=== PATIENT | female | born 1995 | race African-American/Black ===

== ENCOUNTER 2017-12-10 14:36 | Emergency (ER) | payer MEDICAID ==
[2017-12-10 16:34] LABS: Urine Appearance Cloudy; Urine Blood Negative (Negative); Urine Color Yellow; Urine Ketones Negative (Negative); Urine Protein Negative (Negative); Urine Specific Gravity 1.021 (1.010-1.030); Urine Urobilinogen Negative (Negative)
[2017-12-10 17:23] VITALS: BP 108/72
--- NOTE | 2017-12-11 06:16 | ED ---
- HPI Summary HPI Summary: Pt. is a 22 y.o female who presents to the ER for evaluation after a fall that occurred yesterday. Pt. states she is currently 17 weeks and has had a confirmed IUP by her OB. Pt. states yesterday she slipped going down wooden steps and hit her right flank area. No abd. trauma. Pt. states that since fall she has not been feeling the baby "move." She denies abd. pain, vaginal bleeding or discharge. No head injury. Symptoms are mild in severity. - History of Current Complaint Chief Complaint: EDAbdPain Stated Complaint: /FELL YESTERDAY Time Seen by Provider: 12/10/17 15:58 Hx Obtained From: Patient Pain Intensity: 1 - Allergies/Home Medications Home Medications: Home Medications NK [No Home Medications Reported] 12/10/17 [History Confirmed 12/10/17] PMH/Surg Hx/FS Hx/Imm Hx Previously Healthy: Yes Infectious Disease History: No Infectious Disease History: Denies: Traveled Outside the in Last 30 Days - Social History Occupation: Unemployed Lives: With Family Alcohol Use: None Substance Use Type: Reports: Marijuana Smoking Status (MU): Never Smoked Tobacco Review of Systems Cardiovascular: Negative Respiratory: Negative Gastrointestinal: Negative Negative: Abdominal Pain Positive: flank pain - Mild right sided flank pain.. Negative: discharge, hematuria All Other Systems Reviewed And Are Negative: Yes Physical Exam - Physical Exam Triage Information Reviewed: Yes Vital Signs Reviewed: Yes Appearance: Positive: Well-Appearing - Pt. sitting up in bed in NAD. Daughter present. Skin: Positive: Warm, Dry Head/Face: Positive: Normal Head/Face Inspection Eyes: Positive: Normal Neck: Positive: Supple Respiratory/Lung Sounds: Positive: Clear to Auscultation, Breath Sounds Present Cardiovascular: Positive: Normal, RRR Abdomen Description: Positive: Other: - appearing. Abd. is soft and nontender throughout. Mild right CVA tenderness. Neurological: Positive: Normal, CN Intact II-III Psychiatric: Positive: Affect/Mood Appropriate Diagnostics - Vital Signs Vital Signs Temp Pulse Resp BP Pulse Ox 12/10/17 17:22 0 F 80 16 108/72 99 12/10/17 14:49 97.6 F 83 16 115/66 99 - Laboratory Lab Results: Lab Results 12/10/17 Range/Units 16:21 Urine Color Yellow Urine Appearance Cloudy Urine pH 7.0 (5-9) Ur Specific [place] 1.021 (1.010-1.030) Urine Protein Negative (Negative) Urine Ketones Negative (Negative) Urine Blood Negative (Negative) Urine Nitrate Negative (Negative) Urine Bilirubin Negative (Negative) Urine Urobilinogen Negative (Negative) Ur Leukocyte Esterase Negative (Negative) Urine Glucose Negative (Negative) Urine Ascorbic Acid * A (Negative) Lab Statement: Any lab studies that have been ordered have been reviewed, and results considered in the medical decision making process. Course/Dx - Course Course Of Treatment: Pt. presenting for evaluation after falling yesterday. Pt. is concerned bc she is not feeling her baby "move" since fall. She denies abd. pain or bleeding. She does have mild right CVA tenderness from fall. VS stable. Will check U/A and obtain heart tones. U/A negative for blood or infection. heart tones around 140-150bpm as documented. Case discussed with Dr. Ma who agrees formal u/s is not indicated at this time since pt. is having no pain or bleeding. Results discussed with pt. She is upset she is not getting an u/s today and states her mother wanted her to have an u/s. Advised to call her OB today for close f.u. To return to ER if sxs change or worsen. - Differential Diagnosis/HQI/PQRI: Spontaneous , Early , UTI - Diagnoses Provider Diagnoses: Fall, First trimester Discharge - Sign-Out/Discharge Documenting (check all that apply): Patient Departure - Discharge Plan Condition: Good Disposition: HOME Patient Education Materials: (ED) Referrals: Consuelo Adams CNM [Primary Care Provider] - Additional Instructions: Schedule a follow up appointment with your OB - Billing Disposition and Condition Condition: GOOD Disposition: Home
== END 2017-12-10 17:22 | disposition home or self-care (01) ==
LOC: ED 14:36
DX: O26.892 Other specified pregnancy related conditions, second trimester (principal); R10.9 Unspecified abdominal pain; W10.9XXA Fall (on) (from) unspecified stairs and steps, initial encounter; Y92.9 Unspecified place or not applicable; Z3A.17 17 weeks gestation of pregnancy
CPT/HCPCS: 81003; 99282

== ENCOUNTER 2018-04-30 10:03 | Inpatient (IN) | payer OTHER ==
[~2018-04-30 10:03] MED LIST: Buffered Lidocaine 0.9% SYRIN* 5 ML/SYR SYRINGE INTRADERM ONE; Famotidine IV* 10 MG/ML 2 ML (20 mg) IV ONE; Lactated Ringers 1000 ML Bag* 1,000 ML IV ONE; Lactated Ringers 1000 ML Bag* 1,000 ML IV SCH; Sodium Citrate/Citric Acid* 15 ML UDC PO ONE
[2018-04-30] MEDS ORDERED: ceFOXitin 2 GM IVPREMIX* 2 GM/50 ML BAG IVPB ONE (11:00)
[2018-04-30] MEDS ORDERED: fentaNYL* 50 MCG/ML 2 ML VIAL (100 MCG VIAL) ONE (11:40)
[2018-04-30] MEDS ORDERED: Morphine PF AMP (0.5MG/ML)* 5 MG/10 ML AMP ONE (11:41)
[2018-04-30] MEDS ORDERED: KETAMINE HCL* 50 MG/ML 10 ML VIAL ONE (11:41)
[2018-04-30] MEDS ORDERED: Midazolam* 1 MG/ML 5 ML VIAL (5 MG) ONE (11:41)
[2018-04-30] MEDS ORDERED: Scopolamine 1.5 mg* PATCH ONE (12:28)
[2018-04-30] MEDS ORDERED: Nalbuphine* 10 MG/ML 1 ML VIAL IV PRN (12:41)
[2018-04-30] MEDS ORDERED: oxyCODONE/Acetamin 5/325 MG* TAB PO PRN (12:41)
[2018-04-30] MEDS ORDERED: Naloxone* 2 MG in NS 0.9% 250 ML* 250 ML IV PRN (12:41)
[2018-04-30] MEDS ORDERED: Naloxone* 0.4 MG/ML 1 ML VIAL IV PRN ×2 (12:41→12:43)
[2018-04-30] MEDS ORDERED: Scopolamine 1.5 mg* PATCH TRANSDERM PRN (12:41)
[2018-04-30] MEDS ORDERED: DiMENhydriNATE IV* 50 MG/ML VIAL IV PUSH PRN (12:41)
[2018-04-30] MEDS ORDERED: Ondansetron INJ* 2 MG/ML VIAL IV PRN (12:41)
[2018-04-30] MEDS ORDERED: PROCHLORPERAZINE INJ 5 MG/ML 2 ML VIAL IV PRN (12:41)
[2018-04-30] MEDS ORDERED: fentaNYL* 50 MCG/ML 2 ML VIAL (100 MCG VIAL) IV PRN (12:43)
[2018-04-30] MEDS ORDERED: Ondansetron INJ* 2 MG/ML VIAL ONE (13:09)
[2018-04-30] MEDS ORDERED: PROCHLORPERAZINE INJ 5 MG/ML 2 ML VIAL ONE (13:09)
[2018-04-30] MEDS ORDERED: Ketorolac INJ* 30 MG/ML 1 ML VIAL ONE (13:09)
[2018-04-30] MEDS ORDERED: Bupivacaine 0.25% SDV PF* 10 ML VIAL INJ ONE (13:09)
[2018-04-30] MEDS ORDERED: EPHEDrine (Pressors)* 50 MG/ML VIAL ONE (13:09)
[2018-04-30] MEDS ORDERED: Bupivacaine-MPF SPINAL* 7.5 MG/ML - 2ML AMP ONE (13:09)
[2018-04-30] MEDS ORDERED: Dexamethasone IV* 4 MG/ML 1 ML (4 MG) ONE (13:09)
[2018-04-30] MEDS ORDERED: Acetaminophen TAB* 325 MG PO PRN (13:18)
[2018-04-30] MEDS ORDERED: Dibucaine 1% 28.35 GM TUBE PR PRN (13:18)
[2018-04-30] MEDS ORDERED: Zolpidem TAB* 5 MG PO PRN (13:18)
[2018-04-30] MEDS ORDERED: Witch Hazel PAD* JAR TOPICAL PRN (13:18)
[2018-04-30] MEDS ORDERED: Glycerin ADULT SUPP PR PRN (13:18)
[2018-04-30] MEDS ORDERED: Lactated Ringers 1000 ML Bag* 1,000 ML IV SCH (14:00)
[2018-04-30] MEDS: Docusate CAP* 100 MG PO SCH ×2 (18:04→21:08)
[2018-04-30] MEDS: Simethicone TAB* 80 MG TAB.CHEW PO SCH ×2 (18:09→21:08)
[2018-04-30] MEDS: Nicotine PATCH 7 MG/24 HR* PATCH TRANSDERM SCH (18:10)
[2018-04-30] MEDS: Ketorolac INJ* 30 MG/ML 1 ML VIAL IV PUSH PRN (19:56)
--- NOTE | 2018-04-30 22:19 | OP ---
CC: Dr. Cecily Chapa * DATE OF OPERATION: 04/30/18 - ROOM #115 DATE OF : 89 SURGEON: Morales Duong MD. TONG SETTER: Dr. Cecily Chapa. ANESTHESIA: Spinal. PRE-OP DIAGNOSES: 1. at 36 and 5/7 weeks with preeclampsia and severe intrauterine growth restriction of the fetus. 2. Prior section. POST-OP DIAGNOSES: 1. at 36 and 5/7 weeks with preeclampsia and severe intrauterine growth restriction of the fetus. 2. Prior section. OPERATIVE PROCEDURE: Repeat low transverse section. ESTIMATED BLOOD LOSS: 1600 cc. SPECIMEN SENT TO PATHOLOGY: Placenta and cord blood. FLUIDS: She received 2100 cc of IV crystalloid fluid. URINE OUTPUT: 150 cc of clear urine. FINDINGS: Delivery of a male weighing 4 pounds 5 ounces with Apgars of 9 and 9 with clear fluid. There was normal uterus, normal adnexa bilaterally, normal bowel and bladder. There were no complications during this procedure. DESCRIPTION OF PROCEDURE: The patient was taken to the operating room where she was identified. She was placed on the operating table where a spinal anesthetic was obtained without difficulty in the supine position. She was then placed with a leftward tilt, prepped and draped in a normal sterile fashion. A Pfannenstiel skin incision was then made with a knife and carried through to the underlying layer of fascia. The fascia was nicked in the midline , extended laterally with curved Hooker scissors. The fascia was then grasped superiorly and inferiorly with Lux clamps, dissected off sharply from the rectus muscle. The rectus muscle was in the midline bluntly. The peritoneum was identified, grasped with the pickups and entered sharply with Metzenbaum scissors, and extended superiorly and inferiorly sharply. A bladder blade was inserted into the patient's abdomen. A low transverse skin incision was made about 4 cm above the bladder reflection, extended laterally with bandage scissors. The amniotic fluid was ruptured. Fluid was noted to be clear. The infant's head was then grasped and delivered atraumatically. There was a body cord x2. The cord was clamped and cut and then the baby was handed handed off to the awaiting industry consultant. Cord bloods were obtained. The placenta was removed manually. The uterus was then exteriorized, cleared off all clots and debris using moist laparotomy sponges. The uterine incision was then closed using 0 Polysorb suture in a running locked fashion with the second imbricating layer of 0 Polysorb suture with good hemostasis noted. The patient' s uterus was then returned to her abdomen. The gutters were then cleared off all clots and debris using irrigation and moist sponges. The irrigation fluid was suctioned. Again, the uterine incision was hemostatic. All the instruments and sponges were removed from the patient's abdomen. The peritoneum was then closed using 3-0 Polysorb suture in a running fashion. The fascia was closed using 0 Polysorb suture in a running fashion and the skin was closed with 4-0 Monocryl in a subcuticular stitch. The patient tolerated the procedure well. Sponge, lap, needle counts were correct x2. She was then transferred to recovery room area in stable condition. [id number]/[facility] #: [id number] KARSON
[2018-05-01] MEDS: Ketorolac INJ* 30 MG/ML 1 ML VIAL IV PUSH PRN ×2 (03:33→09:45)
[2018-05-01] MEDS ORDERED: oxyCODONE/Acetamin 5/325 MG* TAB PO PRN (04:15)
[2018-05-01 06:47] LABS: Hematocrit 31 % (35-47); Hemoglobin 10.3 g/dl (12.0-16.0); Mean Corpuscular HGB Conc 34 g/dl (31-36); Mean Corpuscular Hemoglobin 31 pg (27-31); Mean Corpuscular Volume 92 fL (80-97); Mean Platelet Volume 8.7 fL (7.4-10.4); Platelet Count 184 10^3/ul (150-450); Red Blood Count 3.34 10^6/ul (4.00-5.40); Red Cell Distribution Width 13 % (10.5-15); White Blood Count 24.2 10^3/ul (3.5-10.8)
[2018-05-01 07:02] LABS: ABS Basophils 0.1 10^3/ul (0-0.2); ABS Eosinophils 0 10^3/ul (0-0.6); ABS Lymphocytes 1.8 10^3/ul (1.0-4.8); ABS Neutrophils 20.3 10^3/ul (1.5-7.7); ABS Nucleated RBC 0 10^3/ul; Eosinophil % 0 %; Lymphocyte % 7.5 %; Nucleated Red Blood Cells % 0.1
[2018-05-01] MEDS ORDERED: Ferrous Gluconate TAB* 324 MG TAB PO SCH (09:00)
[2018-05-01] MEDS: Simethicone TAB* 80 MG TAB.CHEW PO SCH ×4 (09:44→21:03)
[2018-05-01] MEDS: Docusate CAP* 100 MG PO SCH ×3 (09:44→21:03)
[2018-05-01] MEDS ORDERED: Nicotine Patch Removal NOTE PATCH OFF SCH (15:00)
[2018-05-01] MEDS: Ibuprofen TAB* 600 MG PO PRN ×2 (16:04→23:49)
[2018-05-01] MEDS: Nicotine PATCH 7 MG/24 HR* PATCH TRANSDERM SCH (17:34)
[2018-05-01] MEDS: oxyCODONE/Acetamin 5/325 MG* TAB PO PRN ×2 (17:43→23:49)
[2018-05-02] MEDS: oxyCODONE/Acetamin 5/325 MG* TAB PO PRN ×3 (08:25→21:06)
[2018-05-02] MEDS: Docusate CAP* 100 MG PO SCH ×3 (08:26→21:07)
[2018-05-02] MEDS: Ibuprofen TAB* 600 MG PO PRN ×3 (08:26→19:47)
[2018-05-02] MEDS: Simethicone TAB* 80 MG TAB.CHEW PO SCH ×4 (08:26→21:07)
[2018-05-03] MEDS: oxyCODONE/Acetamin 5/325 MG* TAB PO PRN (04:34)
[2018-05-03 07:47] VITALS: BP 128/81
[2018-05-03] MEDS ORDERED: medroxyPROGESTERone ACETATE (DEPOT)* 150 MG/ML 1 ML IM ONE (09:13)
[2018-05-03] MEDS: Simethicone TAB* 80 MG TAB.CHEW PO SCH (09:26)
[2018-05-03] MEDS: Ibuprofen TAB* 600 MG PO PRN (09:26)
[2018-05-03] MEDS: Docusate CAP* 100 MG PO SCH (09:26)
[2018-05-03] MEDS ORDERED: Scopolamine PATCH Remove* 1 NOTE MISC PATCH OFF PRN (12:42)
== END 2018-05-03 11:05 | disposition home or self-care (01) | DRG 540 ==
LOC: MCHOB 10:03
PROVIDERS: ADMIT Obstetrics & Gynecology; ATTEND Obstetrics & Gynecology
PROC: 4A1HXCZ Monitoring of Products of Conception, Cardiac Rate, External Approach (ICD-10-PCS; 2018-04-30)
PROC: 10D00Z1 Extraction of Products of Conception, Low, Open Approach (ICD-10-PCS; principal; 2018-04-30 12:00)
DX: O14.94 Unspecified pre-eclampsia, complicating childbirth (principal); O36.5930 Maternal care for other known or suspected poor fetal growth, third trimester, not applicable or unspecified; O69.81X0 Labor and delivery complicated by cord around neck, without compression, not applicable or unspecified; O99.334 Smoking (tobacco) complicating childbirth; F17.210 Nicotine dependence, cigarettes, uncomplicated; O34.211 Maternal care for low transverse scar from previous cesarean delivery; Z3A.36 36 weeks gestation of pregnancy; Z37.0 Single live birth
CPT/HCPCS: 36415; 85025; 88307; A9270-GY; J0694; J0780; J1050; J1100; J1885; J2250; J2300; J2405; J3010; J3490

== ENCOUNTER 2019-02-13 21:28 | Emergency (ER) | payer SELFPAY ==
[2019-02-13 21:47] VITALS: BP 131/85
[2019-02-13] MEDS ORDERED: Sulfamethox/Trimethoprim DS 800/160* TAB PO ONE (21:55)
--- NOTE | 2019-02-13 22:05 | ED ---
Skin Complaint - HPI Summary HPI Summary: 23 yo BF h/o hidradenitis suppurativa p/w abscess lateral to right vulva x 1 week, now hard to walk due to severe tenderness, denies f/c - History of Current Complaint Chief Complaint: UCSkin Time Seen by Provider: 02/13/19 21:39 Stated Complaint: ABCESS ON RT LEG Hx Obtained From: Patient Hx Last Menstrual Period: today Onset/Duration: Started Days Ago Skin Exposure Onset/Duration: Days Ago Timing: Constant Onset Severity: Severe Current Severity: Severe Pain Intensity: 7 - Allergy/Home Medications Allergies/Adverse Reactions: Allergies Allergy/AdvReac Type Severity Reaction Status Date / Time No Known Allergies Allergy Verified 02/13/19 21:47 PMH/Surg Hx/FS Hx/Imm Hx Previously Healthy: Yes Endocrine/Hematology History: Denies: Hx Diabetes, Hx Thyroid Disease Cardiovascular History: Denies: Hx Hypertension Respiratory History: Denies: Hx Asthma, Hx Chronic Obstructive Pulmonary Disease (COPD) GI History: Denies: Hx Ulcer - Surgical History Surgery Procedure, Year, and Place: C-Sections x 2 Infectious Disease History: No Infectious Disease History: Denies: Hx Hepatitis, Hx Human Immunodeficiency Virus (HIV), Traveled Outside the [place] in Last 30 Days - Family History Known Family History: Positive: Non-Contributory - Social History Alcohol Use: None Substance Use Type: Reports: Marijuana Smoking Status (MU): Light Every Day Tobacco Smoker Type: Cigarettes Amount Used/How Often: 2-4 cigarettes/day Have You Smoked in the Last Year: Yes Review of Systems Constitutional: Negative Positive: Photophobia ENT: Negative Cardiovascular: Negative Respiratory: Negative Gastrointestinal: Negative Musculoskeletal: Negative Skin: Other - see HPI All Other Systems Reviewed And Are Negative: Yes Physical Exam - Summary Physical Exam Summary: Vital Signs Reviewed: Yes Eye Exam: Normal Eyes: Positive: Conjunctiva Clear ENT: Positive: Normal ENT inspection Neck: Positive: Supple Respiratory Exam: Normal Respiratory: Positive: Lungs clear Cardiovascular Exam: Normal Cardiovascular: Positive: RRR, S1 S2 Abdomen: NT/ND Musculoskeletal Exam: Normal Neurological Exam: Normal Psychological Exam: Normal Skin Exam: 1x1cm hard abscess on perineum inferio-lateral to right vulva Vital Signs On Initial Exam: Initial Vitals Temp Pulse Resp BP Pulse Ox 37.0 C 81 16 131/85 98 02/13/19 21:43 02/13/19 21:43 02/13/19 21:43 02/13/19 21:43 02/13/19 21:43 Diagnostics - Vital Signs Vital Signs Temp Pulse Resp BP Pulse Ox 02/13/19 21:43 37.0 C 81 16 131/85 98 - Laboratory Lab Statement: Any lab studies that have been ordered have been reviewed, and results considered in the medical decision making process. Course/Dx - Course Assessment/Plan: Aspirated - Differential Diagnoses - Skin Complaint Differential Diagnoses: Abscess - Diagnoses Provider Diagnoses: Hidradenitis suppurativa, Abscess Discharge ED - Sign-Out/Discharge Documenting (check all that apply): Patient Departure All imaging exams completed and their final reports reviewed: No Studies - Discharge Plan Condition: Stable Disposition: HOME Prescriptions: Sulfamethox/Trimethoprim DS* [Bactrim DS 800/160 TAB*] 1 tab PO BID 10 Days #20 tab Patient Education Materials: Abscess (ED), Hidradenitis Suppurativa (ED) Referrals: Mark Zamarripa MD [Medical Doctor] - Additional Instructions: Follow up with Dermatology if swelling worsens on abx - Billing Disposition and Condition Condition: STABLE Disposition: Home
--- NOTE | 2019-02-16 20:53 | UC ---
- Progress Note Progress Note: PATIENT CALLED REQUESTING A WORK NOTE FOR 02/13/19 AND 02/14/19. WORK NOTE PROVIDED AND LEFT AT THE FIELD EDUCATION DIRECTOR FOR PICKUP. Course/Dx - Diagnoses Provider Diagnoses: Hidradenitis suppurativa, Abscess Discharge ED - Sign-Out/Discharge Documenting (check all that apply): Post-Discharge Follow Up All imaging exams completed and their final reports reviewed: No Studies - Discharge Plan Condition: Stable Disposition: HOME Patient Education Materials: Abscess (ED), Hidradenitis Suppurativa (ED) Forms: *Work Release Referrals: Mark Zamarripa MD [Medical Doctor] - Additional Instructions: Follow up with Dermatology if swelling worsens on abx - Billing Disposition and Condition Condition: STABLE Disposition: Home
--- NOTE | 2019-02-18 17:43 | UC ---
- Progress Note Progress Note: Please call patient - see if wound is improving - Continue with abx if improving, notify MD if not Katie Course/Dx - Diagnoses Provider Diagnoses: Hidradenitis suppurativa, Abscess Discharge ED - Sign-Out/Discharge Documenting (check all that apply): Post-Discharge Follow Up All imaging exams completed and their final reports reviewed: No Studies - Discharge Plan Condition: Stable Disposition: HOME Patient Education Materials: Abscess (ED), Hidradenitis Suppurativa (ED) Forms: *Work Release Referrals: Mark Zamarripa MD [Medical Doctor] - Additional Instructions: Follow up with Dermatology if swelling worsens on abx - Billing Disposition and Condition Condition: STABLE Disposition: Home
== END 2019-02-13 22:15 | disposition home or self-care (01) ==
LOC: UCEAST 21:28
DX: L02.415 Cutaneous abscess of right lower limb (principal); L73.2 Hidradenitis suppurativa; F17.210 Nicotine dependence, cigarettes, uncomplicated
CPT/HCPCS: 87070; 87076; 87077; 87205; 87640; 87641; 99212; A9270-GY; G0463

== ENCOUNTER 2019-02-15 12:08 | Emergency (ER) | payer SELFPAY ==
--- NOTE | 2019-02-15 14:10 | ED ---
Skin Complaint - HPI Summary HPI Summary: Patient is a 23-year-old male who presents emergency department for ongoing abscess to right groin. Patient states she's had a painful lump to right coronary for about one week. She was seen at [facility] 2 days ago and had area aspirated. She was not placed on antibiotics. Patient states area become more painful and swollen. She denies past medical history. Denies fever , chills, nausea, vomiting. Symptoms are mild in severity. Touching area makes symptoms worse. Nothing makes symptoms better. - History of Current Complaint Chief Complaint: EDRashSkinAbscess Time Seen by Provider: 02/15/19 12:44 Stated Complaint: ABCESS Hx Obtained From: Patient Hx Last Menstrual Period: today Pain Intensity: 8 - Allergy/Home Medications Allergies/Adverse Reactions: Allergies Allergy/AdvReac Type Severity Reaction Status Date / Time No Known Allergies Allergy Verified 02/15/19 13:12 PMH/Surg Hx/FS Hx/Imm Hx Previously Healthy: Yes Endocrine/Hematology History: Denies: Hx Diabetes, Hx Thyroid Disease Cardiovascular History: Denies: Hx Hypertension Respiratory History: Denies: Hx Asthma, Hx Chronic Obstructive Pulmonary Disease (COPD) GI History: Denies: Hx Ulcer - Surgical History Surgery Procedure, Year, and Place: C-Sections x 2 Infectious Disease History: No Infectious Disease History: Denies: Hx Hepatitis, Hx Human Immunodeficiency Virus (HIV), Traveled Outside the [place] in Last 30 Days - Family History Known Family History: Positive: Non-Contributory - Social History Occupation: Employed Full-time Lives: With Family Alcohol Use: Rare Substance Use Type: Reports: Marijuana Smoking Status (MU): Light Every Day Tobacco Smoker Type: Cigarettes Amount Used/How Often: 2-4 cigarettes/day Have You Smoked in the Last Year: Yes Review of Systems Constitutional: Negative Negative: Fever, Chills Gastrointestinal: Negative Negative: Vomiting Positive: Other - Abscess to right groin All Other Systems Reviewed And Are Negative: Yes Physical Exam Triage Information Reviewed: Yes Vital Signs On Initial Exam: Initial Vitals Temp Pulse Resp BP Pulse Ox 97.8 F 81 18 134/81 99 02/15/19 12:14 02/15/19 12:14 02/15/19 12:14 02/15/19 12:14 02/15/19 12:14 Vital Signs Reviewed: Yes Appearance: Positive: Well-Appearing - Pt. lying in bed in NAD. Skin: Positive: Warm, Dry, Other - 3 cm area of fluctuance noted to right groin. Pinpoint area of drainage. Head/Face: Positive: Normal Head/Face Inspection Eyes: Positive: Normal, EOMI Neck: Positive: Supple Neurological: Positive: Normal, CN Intact II-III Psychiatric: Positive: Affect/Mood Appropriate Procedures - Sedation Patient Received Moderate/Deep Sedation with Procedure: No - Incision and Drainage Right Groin Anesthesia: Local, Lidocaine Instrument(s): Scalpel Packing: Gauze Diagnostics - Vital Signs Vital Signs Temp Pulse Resp BP Pulse Ox 02/15/19 12:14 97.8 F 81 18 134/81 99 - Laboratory Lab Statement: Any lab studies that have been ordered have been reviewed, and results considered in the medical decision making process. Course/Dx - Course Course Of Treatment: Patient presenting with abscess to right groin. Area was incised and drained as noted above. Moderate amount of purulent foul-smelling drainage expressed. Packing removal in 48 hours. To continue warm compresses. Bactrim prescribed. Tylenol or Motrin for pain as directed. Patient return to ER for increased pain, swelling, fever or if concerned. Patient understands and agrees with plan. - Differential Diagnoses - Skin Complaint Differential Diagnoses: Abscess, Cellulitis - Diagnoses Provider Diagnoses: Abscess Discharge ED - Sign-Out/Discharge Documenting (check all that apply): Patient Departure - Discharge Plan Condition: Improved Disposition: HOME Prescriptions: Sulfamethox/Trimethoprim DS* [Bactrim DS 800/160 TAB*] 1 tab PO BID #20 tab Patient Education Materials: Abscess (ED) Forms: *Work Release Referrals: [facility] [Outside] - 1 Week Additional Instructions: Packing removal in 48 hours Antibiotic as directed Apply warm compresses Tylenol or Motrin for pain as directed Return to ER for increased pain, swelling, fever, or if concerned - Billing Disposition and Condition Condition: IMPROVED Disposition: Home
[2019-02-15] MEDS: Lidocaine 1% MPF ** 5 ML VIAL INJ ONE (14:45)
[2019-02-15 15:42] VITALS: BP 128/82
== END 2019-02-15 15:15 | disposition home or self-care (01) ==
LOC: ED 12:08
DX: L02.214 Cutaneous abscess of groin (principal); F17.210 Nicotine dependence, cigarettes, uncomplicated
CPT/HCPCS: 10060; 99282

== ENCOUNTER 2019-04-21 18:31 | Emergency (ER) | payer SELFPAY ==
[2019-04-21 18:47] VITALS: BP 116/58
--- NOTE | 2019-04-21 20:13 | UC ---
Eye Complaint HPI - HPI Summary HPI Summary: 23-year-old female presents with 2 day history of right eye redness, itching, and discharge. States symptoms initially started yesterday with some mild redness and itching and a little bit of crusting in the corner of her eye however this morning she awoke with her eye completely crusted shut. States the eye has progressively gotten more red and has started having discharge from the eye. Does not wear contacts. Denies any fever, chills, URI symptoms, injury, eye pain, visual disturbances, or photophobia. - History of Current Complaint Chief Complaint: UCEye Stated Complaint: POSS PINK EYE Time Seen by Provider: 04/21/19 19:52 Hx Obtained From: Patient Hx Last Menstrual Period: today Pain Intensity: 0 - Allergies/Home Medications Allergies/Adverse Reactions: Allergies Allergy/AdvReac Type Severity Reaction Status Date / Time No Known Allergies Allergy Verified 04/21/19 18:47 PMH/Surg Hx/FS Hx/Imm Hx Previously Healthy: Yes - Denies significant PMH - Surgical History Surgical History: Yes Surgery Procedure, Year, and Place: C-Sections x 2 - Family History Known Family History: Positive: Non-Contributory - Social History Occupation: Works From/At Home Lives: With Family Alcohol Use: Rare Substance Use Type: Marijuana Smoking Status (MU): Light Every Day Tobacco Smoker Type: Cigarettes Amount Used/How Often: 2-4 cigarettes/day Have You Smoked in the Last Year: Yes Household Exposure Type: Cigarettes - Immunization History Most Recent Influenza Vaccination: declined Most Recent Pneumonia Vaccination: none Review of Systems All Other Systems Reviewed And Are Negative: Yes Constitutional: Negative: Fever, Chills Eyes: Positive: Drainage, Eye Redness. Negative: Blurred Vision, Diplopia, Photophobia ENT: Negative: Sore Throat, Ear Ache, Nasal Discharge, Sinus Congestion, Sinus Pain/Tenderness Respiratory: Negative: Cough Cardiovascular: Positive: Negative Gastrointestinal: Positive: Negative Genitourinary: Positive: Negative Musculoskeletal: Positive: Negative Neurological: Positive: Negative Is Patient Immunocompromised?: No Physical Exam - Summary Physical Exam Summary: GENERAL APPEARANCE: Well developed, well nourished, alert and cooperative, and appears to be in no acute distress. EYES: Left conjunctiva clear. No drainage. Right conjunctival erythema with purulent discharge. PERRL, EOM intact. Vision is grossly intact. EARS: External auditory canals and tympanic membranes clear, hearing grossly intact. NOSE: No nasal discharge. THROAT: Pharynx normal No tonsilar inflammation, swelling, exudate, or lesions. Uvula midline. Oral cavity normal. Teeth and gingiva in good general condition. NECK: Neck supple, non-tender without lymphadenopathy. CARDIAC: Normal S1 and S2. No S3, S4 or murmurs. Rhythm is regular. There is no peripheral edema, cyanosis or pallor. Extremities are warm and well perfused. Capillary refill is less than 2 seconds. Peripheral pulses intact. LUNGS: Clear to auscultation without rales, rhonchi, wheezing or diminished breath sounds. ABDOMEN: Positive bowel sounds. Soft, nondistended, nontender. No guarding or rebound. No masses or hepatosplenomegally. MUSKULOSKELETAL: ROM intact to all extremities. No joint erythema or tenderness. Normal muscular development. Normal gait. SKIN: Skin normal color, texture and turgor with no lesions or eruptions. Triage Information Reviewed: Yes Vital Signs: Initial Vital Signs Temp 97.8 F 04/21/19 18:43 Pulse 77 04/21/19 18:43 Resp 18 04/21/19 18:43 BP 116/58 04/21/19 18:43 Pulse Ox 100 04/21/19 18:43 Vital Signs Reviewed: Yes Eye Complaint Course/Dx - Course Course Of Treatment: 23-year-old female presents with 2 day history of right eye redness, itching, and discharge. States symptoms initially started yesterday with some mild redness and itching and a little bit of crusting in the corner of her eye however this morning she awoke with her eye completely crusted shut. States the eye has progressively gotten more red and has started having discharge from the eye. Does not wear contacts. Denies any fever, chills, URI symptoms, injury, eye pain, visual disturbances, or photophobia. Afebrile. Vital signs stable. Patient had right conjunctival erythema with purulent discharge consistent with a bacterial conjunctivitis. Remainder of exam was unremarkable. We'll start her on Polytrim ophthalmic 1 drop into the affected eye 4 times a day 7 days. She is to follow-up here with her primary care provider in 2 days if symptoms do not improve. Anticipatory guidance and warning symptoms were reviewed with the patient. Verbalizes understanding and agrees and of care. - Differential Dx/Diagnosis Differential Diagnosis/HQI/PQRI: Conjunctivitis, Corneal Abrasion, Foreign Body Provider Diagnosis: Bacterial conjunctivitis of right eye Discharge ED - Sign-Out/Discharge Documenting (check all that apply): Patient Departure All imaging exams completed and their final reports reviewed: No Studies - Discharge Plan Condition: Stable Disposition: HOME Prescriptions: Polymyx/Trimethoprim OPTH* [Polytrim OPHTH*] 1 drop RIGHT EYE QID 7 Days #1 btl Patient Education Materials: Conjunctivitis (ED) Forms: *Work Release Referrals: No Primary Care Phys,NOPCP [Primary Care Provider] - Additional Instructions: Your history and exam are consistent with a bacterial conjunctivitis (pink eye) of the right eye. Start Polytrim ophthalmic drops. Instill 1 drop in to the affected eye 4 times a day for 7 days. To avoid reinfection or spreading infection: * Use washcloths and towels once then launder. * Do not share washcloths or towels with others. * Change your pillow case each morning until you have finished treatment. * You should throw out any eye makeup, especially mascara, and use a new one once you have finished treatment. Follow up here or with your primary care provider in 3 days if no improvement. Seek immediate medical attention in the emergency room if you develop fever greater than 100.5 F, have pain or swelling of the eye, visual disturbances, loss of vision, or any worsening of symptoms. - Billing Disposition and Condition Condition: STABLE Disposition: Home - Attestation Statements Provider Attestation: This patient was not seen by me. I was available for consult. Chart reviewed. DIANA
== END 2019-04-21 20:20 | disposition home or self-care (01) ==
LOC: UCEAST 18:31
DX: H10.9 Unspecified conjunctivitis (principal); B96.89 Other specified bacterial agents as the cause of diseases classified elsewhere; F17.210 Nicotine dependence, cigarettes, uncomplicated
CPT/HCPCS: 99212; G0463

== ENCOUNTER 2019-06-07 06:49 | Emergency (ER) | payer SELFPAY ==
--- NOTE | 2019-06-07 07:30 | ED ---
- HPI Summary HPI Summary: 23 year old F arriving via private car complains of right lower abdominal cramping that started yesterday 06/06/2019 AM. Patient is approximately 12 weeks . A0. LNMP 04/07/19. Patient was seen at [facility] where she had a positive test when she was 5 weeks . Had an ultrasound done when she was 6 weeks . Patient states she noticed blood in the toilet today 06/07/2019 AM while she was using the bathroom. No vaginal bleeding yesterday. No fever, nausea, vomiting, back pain, bilateral flank pain. Pain rated 0/10 in severity. Symptoms aggravated by nothing. Symptoms alleviated by nothing. Last ate yesterday 06/07/2019 19:00. Medications reviewed. Allergies noted. Patient states she has never had a miscarriage. She states her daughter was born full term but her son was not. Hx C-sections x2. No hx diabetes. - History of Current Complaint Chief Complaint: EDOBProblems Stated Complaint: POS MISCARRIAGE PER PT Time Seen by Provider: 06/07/19 07:18 Hx Obtained From: Patient Chief Complaint: Pain, Vaginal Bleeding Onset/Duration: Started Days Ago - 1, Still Present Timing: Constant Current Severity: None Pain Intensity: 0 Location of Pain: Other: - right lower abdomen Aggravating Factors: Nothing Alleviating Factors: Nothing Associated Signs and Symptoms: Positive: Negative - fever, nausea, vomiting, back pain, bilateral flank pain - Assessment Hx Now: Yes - 6weeks Hx : 3 Hx Para: 2 SAB: 0 Hx Hysterectomy: No - Additional Pertinent History Maternal Blood Type and Rh: B Positive - Allergies/Home Medications Allergies/Adverse Reactions: Allergies Allergy/AdvReac Type Severity Reaction Status Date / Time No Known Allergies Allergy Verified 06/07/19 08:16 PMH/Surg Hx/FS Hx/Imm Hx Endocrine/Hematology History: Denies: Hx Diabetes, Hx Thyroid Disease Cardiovascular History: Denies: Hx Hypertension Respiratory History: Denies: Hx Asthma, Hx Chronic Obstructive Pulmonary Disease (COPD) GI History: Denies: Hx Ulcer - Surgical History Surgery Procedure, Year, and Place: C-Sections x 2 Infectious Disease History: No Infectious Disease History: Denies: Hx Hepatitis, Hx Human Immunodeficiency Virus (HIV), Traveled Outside the [place] in Last 30 Days - Family History Known Family History: Positive: Hypertension, Diabetes - Social History Alcohol Use: Rare Hx Substance Use: Yes Substance Use Type: Reports: Marijuana Hx Tobacco Use: Yes Smoking Status (MU): Light Every Day Tobacco Smoker Type: Cigarettes Amount Used/How Often: 2-4 cigarettes/day Have You Smoked in the Last Year: Yes Review of Systems Negative: Fever Positive: Abdominal Pain - right lower. Negative: Vomiting, Nausea Positive: other - vaginal bleeding. Negative: flank pain - bilateral Musculoskeletal: Negative - back pain All Other Systems Reviewed And Are Negative: Yes Physical Exam - Summary Physical Exam Summary: Constitutional: Well-developed, Well-nourished, Alert. (-) Distressed Skin: Warm, Dry HENT: Normocephalic; Atraumatic Eyes: Conjunctiva normal Neck: Musculoskeletal ROM normal neck. (-) JVD, (-) Stridor, (-) Tracheal deviation Cardio: Rhythm regular, rate normal, Heart sounds normal; Intact distal pulses; The pedal pulses are 2+ and symmetric. Radial pulses are 2+ and symmetric. (-) Murmur Pulmonary/Chest wall: Effort normal. (-) Respiratory distress, (-) Wheezes, (-) Rales Abd: Soft, (-) tenderness, (-) Distension, (-) Guarding, (-) Rebound Musculoskeletal: (-) Edema Lymph: (-) Cervical adenopathy Neuro: Alert, Oriented x3 Psych: Mood and affect Normal - Physical Exam Triage Information Reviewed: Yes Vital Signs Reviewed: Yes Procedures - Sedation Patient Received Moderate/Deep Sedation with Procedure: No Diagnostics - Vital Signs Vital Signs Temp Pulse Resp BP Pulse Ox 06/07/19 07:03 98.0 F 79 18 137/85 99 - Laboratory Result Diagrams: 06/07/19 07:40 06/07/19 07:40 Lab Statement: Any lab studies that have been ordered have been reviewed, and results considered in the medical decision making process. - Ultrasound Ultrasound Interpretation Completed By: Radiologist Summary of Ultrasound Findings: INTRAUTERINE GESTATION AT 10 WEEKS, 2 DAYS BY CROWN-RUMP LENGTH WITHOUT DETECTABLE CARDIAC MOTION, CONCERNING FOR EARLY FAILURE. ECOMMEND CORRELATION WITH SERIAL BETA-HCG AND FOLLOW-UP IMAGING. ED physician has reviewed this report. Re-Evaluation - Re-Evaluation First Eval Re-Evaluation Time: 09:01 Comment: patient understands d/c instructions Course/Dx - Course Course Of Treatment: 23 y/o F complains of right lower abdominal cramping that started yesterday 06/06/2019 AM and vaginal bleeding that started today 2019 AM. Patient is approximately 12 weeks . A0. LNMP 04/07/19. Patient was seen at [facility] where she had a positive test when she was 5 weeks . Had an ultrasound done when she was 6 weeks . Patient states she noticed blood in the toilet today 06/07/2019 AM while she was using the bathroom. No fever, nausea, vomiting, back pain, bilateral flank pain. Hx C-sections x2. Physical exam unremarkable. Bloodwork results with no significant abnormalities except for Hgb 11.7, Hct 34, MCH 32. Beta HCG 4087.00. ultrasound shows, per radiologist: INTRAUTERINE GESTATION AT 10 WEEKS, 2 DAYS BY CROWN-RUMP LENGTH WITHOUT DETECTABLE CARDIAC MOTION, CONCERNING FOR EARLY FAILURE. ECOMMEND CORRELATION WITH SERIAL BETA-HCG AND FOLLOW-UP IMAGING. In the ED course, the patient was given normal saline IV fluids 1 L. Patient will be discharged home with follow up from Dr. Rhoda SANABRIA in 2 days. Patient was instructed to return to Emergency Department for new or worsening symptoms. Patient understands and is agreeable to this plan. - Diagnoses Provider Diagnoses: Miscarriage Discharge ED - Sign-Out/Discharge Documenting (check all that apply): Patient Departure - Discharge Plan Condition: Stable Disposition: HOME Patient Education Materials: Miscarriage (ED) Referrals: Morales Duong MD [Medical Doctor] - 2 Days Additional Instructions: Follow up with Dr. Duong in 2 days. Return to the Emergency Department for new or worsening symptoms. - Billing Disposition and Condition Condition: STABLE Disposition: Home - Attestation Statements Document Initiated by Scribe: Yes Documenting Scribe: Miranda Burt Provider For Whom Scribe is Documenting (Include Credential): Duncan Connor DO Scribe Attestation: Miranda Savage, stevened for Duncan Connor DO on 06/07/19 at 1149. Scribe Documentation Reviewed: Yes Provider Attestation: The documentation as recorded by the Miranda sanchez accurately reflects the service I personally performed and the decisions made by me, Duncan Connor, DO Status of Scribe Document: Viewed
[2019-06-07] MEDS ORDERED: NS 0.9% 1000 ML** 1,000 ML IV ONE (07:32)
[2019-06-07 07:53] LABS: ABS Eosinophils 0.2 10^3/ul (0-0.6); ABS Lymphocytes 1.4 10^3/ul (1.0-4.8); ABS Monocytes 0.8 10^3/ul (0-0.8); ABS Neutrophils 4.8 10^3/ul (1.5-7.7); Eosinophil % 2.5 %; Hematocrit 34 % (35-47); Hemoglobin 11.7 g/dL (12.0-16.0); Lymphocyte % 19.4 %; Mean Corpuscular HGB Conc 35 g/dL (31-36); Mean Corpuscular Hemoglobin 32 pg (27-31); Mean Corpuscular Volume 91 fL (80-97); Mean Platelet Volume 7.9 fL (7.4-10.4); Platelet Count 211 10^3/uL (150-450); Red Cell Distribution Width 13 % (10-15); White Blood Count 7.2 10^3/uL (3.5-10.8)
[2019-06-07 08:05] LABS: Albumin 3.8 g/dL (3.2-5.2); Albumin/Globulin Ratio 1.2 (1-3); BUN/Creatinine Ratio 15.3 (8-20); Calcium 8.7 mg/dL (8.6-10.3); EGFR African American 151.5 (>60); EGFR Non-African American 125.2 (>60); Globulin 3.1 g/dL (2-4); Potassium 3.8 mmol/L (3.5-5.0); Total Bilirubin 0.6 mg/dL (0.2-1.0); Total Protein 6.9 g/dL (6.4-8.9)
[2019-06-07 09:04] VITALS: BP 0/0
== END 2019-06-07 09:03 | disposition home or self-care (01) ==
LOC: ED 06:49
DX: O03.9 Complete or unspecified spontaneous abortion without complication (principal); Z3A.10 10 weeks gestation of pregnancy; O99.331 Smoking (tobacco) complicating pregnancy, first trimester; F17.210 Nicotine dependence, cigarettes, uncomplicated
CPT/HCPCS: 36415; 76815; 80053; 84702; 85025; 86900; 86901; 99282

== ENCOUNTER 2020-05-08 05:59 | Inpatient (IN) ==
[~2020-05-08 05:59] MED LIST changes: -Buffered Lidocaine 0.9% SYRIN* 5 ML/SYR SYRINGE INTRADERM ONE; +Buffered Lidocaine 1% SYRIN 1 ml INTRADERM ONE; -Famotidine IV* 10 MG/ML 2 ML (20 mg) IV ONE; -Lactated Ringers 1000 ML Bag* 1,000 ML IV ONE; -Lactated Ringers 1000 ML Bag* 1,000 ML IV SCH; +Lactated Ringers 1000 ml BAG 1,000 ML IV SCH; -Sodium Citrate/Citric Acid* 15 ML UDC PO ONE
[2020-05-08] MEDS ORDERED: ceFOXitin 2 GM IVPREMIX 2 GM/50 ML BAG IVPB ONE (06:00)
[2020-05-08 06:40] LABS: Urine Benzodiazepine Screen None Detected (None Detect); Urine Cannabinoids Screen None Detected (None Detect); Urine Opiates Screen None Detected (None Detect)
[2020-05-08] MEDS ORDERED: Sodium Citrate/Citric Acid LIQ 15 ML UDC ONE ×2 (06:44→06:49)
[2020-05-08] MEDS ORDERED: Oxytocin 10 UNITS/ML 1 ML VIAL ONE ×2 (07:06→09:44)
[2020-05-08] MEDS ORDERED: Morphine PF AMP (0.5MG/ML) 5 MG/10 ML AMP ONE (07:06)
[2020-05-08] MEDS ORDERED: fentaNYL 100 mcg/2 ml 50 MCG/ML VIAL IV PRN (07:30)
[2020-05-08] MEDS ORDERED: Naloxone 0.4 mg VIAL 0.4 mg/ml 1 ml VIAL IV PRN ×2 (07:30→07:36)
[2020-05-08] MEDS ORDERED: diPHENhydraMINE IV 50 MG/ML 1 ml VIAL (BENADRYL) IV PRN ×2 (07:30→07:36)
[2020-05-08] MEDS ORDERED: Sodium Citrate/Citric Acid LIQ 15 ML UDC PO PRN (07:34)
[2020-05-08] MEDS ORDERED: Lactated Ringers 1000 ml BAG 1,000 ML IV ONE (07:34)
[2020-05-08] MEDS ORDERED: DiMENhydriNATE IV 50 mg/ml 1 ml VIAL IV PUSH PRN (07:36)
[2020-05-08] MEDS ORDERED: oxyCODONE/Acetamin 5/325 mg TAB PO PRN (07:36)
[2020-05-08] MEDS ORDERED: Ondansetron 4 mg VIAL 2 MG/ML 2 ml VIAL IV PRN (07:36)
[2020-05-08] MEDS ORDERED: Lactated Ringers 1000 ml BAG 1,000 ML IV SCH ×2 (08:00→11:00)
[2020-05-08] MEDS ORDERED: OBEPIDURAL 250 ML EPIDURAL SCH (08:00)
[2020-05-08] MEDS ORDERED: EPHEDrine (Pressors) 50 MG/ML VIAL ONE (09:26)
[2020-05-08] MEDS ORDERED: Carboprost Tromethamine 250 mcg 1 ml VIAL ONE (09:27)
[2020-05-08] MEDS ORDERED: Ondansetron 4 mg VIAL 2 MG/ML 2 ml VIAL ONE (09:49)
[2020-05-08] MEDS ORDERED: Dibucaine 1% OINT 28.35 GM TUBE PR PRN (10:17)
[2020-05-08] MEDS ORDERED: Glycerin ADULT 2.4 gm SUPP PR PRN (10:17)
[2020-05-08] MEDS ORDERED: Witch Hazel PAD JAR TOPICAL PRN (10:17)
[2020-05-08] MEDS ORDERED: Ammonia Inhalant 1 EA AMP ONE (16:57)
[2020-05-09 07:16] LABS: ABS Basophils 0.1 10^3/ul (0-0.2); ABS Eosinophils 0.1 10^3/ul (0-0.6); ABS Monocytes 0.8 10^3/ul (0-0.8); ABS Neutrophils 6.5 10^3/ul (1.5-7.7); Eosinophil % 1.2 %; Hematocrit 23 % (35-47); Hemoglobin 7.9 g/dL (12.0-16.0); Lymphocyte % 20.8 %; Mean Corpuscular HGB Conc 34 g/dL (31-36); Mean Corpuscular Hemoglobin 29 pg (27-31); Mean Corpuscular Volume 86 fL (80-97); Mean Platelet Volume 8.8 fL (7.4-10.4); Platelet Count 212 10^3/uL (150-450); Red Blood Count 2.68 10^6 /uL (3.70-4.87); Red Cell Distribution Width 13 % (10-15); White Blood Count 9.5 10^3/uL (3.5-10.8)
[2020-05-10 07:35] VITALS: BP 128/71
== END 2020-05-10 13:10 | disposition home or self-care (01) | DRG 540 ==
LOC: MCHOB 05:59
PROVIDERS: ADMIT Obstetrics & Gynecology; ATTEND Obstetrics & Gynecology